=== PATIENT | male | born 1985 | race American Indian/Alaskan Native ===

== ENCOUNTER 2017-09-23 09:28 | Outpatient (CLI) | payer OTHER | END 2017-09-23 09:29 | disposition home or self-care (01) | LOC: US 09:28 | PROVIDERS: ATTEND Family Medicine | DX: E78.5 Hyperlipidemia, unspecified (principal); B19.10 Unspecified viral hepatitis B without hepatic coma; R74.0 Nonspecific elevation of levels of transaminase and lactic acid dehydrogenase [LDH] | CPT/HCPCS: 76700 ==